=== PATIENT | female | born 1965 | race Caucasian/White ===

== ENCOUNTER → 2018-10-27 14:37 | Outpatient (CLI) | payer OTHER, SELFPAY ==
[2014-10-24 18:42] VITALS: BMI 26.4
[2018-11-05 16:01] LABS: HPV APTIMA, High Risk Positive (Negative); HPV Reflexed? YES, CHARGE PATIENT
== END ==
PROVIDERS: Visit Provider Obstetrics & Gynecology
DX: Z12.4 Encounter for screening for malignant neoplasm of cervix (principal)
CPT/HCPCS: 87624; 88175; G0145

== ENCOUNTER → 2018-12-13 17:15 | Outpatient (CLI) | payer OTHER, SELFPAY ==
--- NOTE | 2018-12-13 | IMM_PTH ---
PATIENT: ELEANOR PANTOJA LOC: [facility] U#:[id number] AGE/SX: 59/F ROOM: RE12/13/[address]: Dr. Alexis Corea MD : 1965 BED: DIS: SPEC #: [id number] RECD: 12/15/18 12:49 STATUS: BLAS RECarolina #: [id number] FELIPE: 12/13/18 00:[address]: Alexis Corea DEPT: IMMUNOHISTOCHEMISTRY RECD BY: Chelsey Clifton ENTERED: 12/15/18 12:50 SP TYPE: IMMUNO OTHR DR: No Primary Care Phys Tissues: A - Uterine cervix, NOS B - Endocervical Procedures: p16 (initial) KI-67 (add) PHYSICIAN & INSTITUTION [place] [id number] SPECIMEN INFORMATION: Tissue Source: A - Cervix, four-quad biopsy, B - ECC Clinical Info: R87.612 Specimen Number: [id number] A & B CPT code: 43875 x2, 01449 x2 METHODOLOGY: Deparaffinized sections of prefer/formalin-fixed tissue or PAP/DQ stained slides are incubated with monoclonal/polyclonal antibodies/oligonucleotide probes. Localization is made via biotin free immunoperoxidase method. Appropriate controls are performed and reacted as expected. Results on target cell population are indicated in the following table: RESULTS: ANTIBODY / CLONE RESULT Block A P16 (E6H4) negative Ki-67 (30-9) negative Block B P16 (E6H4) negative Ki-67 (30-9) negative These tests were developed and their performance characteristics determined by [facility]. They may not have been cleared or approved by the U.S. Food and Drug Administration. The FDA has determined that such clearance or approval is not necessary. INTERPRETATION: A. Cervix, four-quad biopsy: Suspicious for focal HPV change. B. ECC: Suspicious for focal HPV change. AM:sharif 12/15/18
--- NOTE | 2018-12-13 17:15 | CER_PTH ---
PATIENT: ELEANOR PANTOJA [facility][id number] AGE/SX: 59/F ROOM: RE12/13/[address]: Dr. Alexis Corea MD : 1965 BED: DIS: SPEC #: [id number] RECD: 12/13/18 17:32 STATUS: BLAS VIOLETA #: [id number] FELIPE: 12/13/18 17:[address]: Alexis Corea DEPT: SURGICAL PATHOLOGY RECD BY: Omari French ENTERED: 12/14/18 11:30 SP TYPE: CERV OT DR: No Primary Care Phys Tissues: A - Uterine cervix, NOS B - Endocervical Procedures: Surgery Specimen Level IV HEADER OPERATION: Colposcopy PRE-OP DIAGNOSIS: R87.612 TISSUE SUBMITTED: A - Four-quad biopsy, B - [facility] MICROSCOPIC DIAGNOSIS A. 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 See comment. B. Endocervix, curettings: Strips of benign superficial endocervix. Detached fragments of squamous mucosa suspicious for HPV change. See comment. AM:sharif 12/15/18 COMMENT A & B. Results from immunohistochemistry ([id number]) for surrogate HPV marker (p16) will be reported separately. Case has been reviewed in consultation with Dr. Alvarez who concurs with the above diagnosis. IDC:SERGIO MICROSCOPIC DESCRIPTION Slides are reviewed. GROSS DESCRIPTION A - Received in fixative is one container labeled with the patient's name and designated four-quad biopsy. The specimen consists of multiple irregular fragments of light judd soft tissue that in aggregate measure 0.3 x 0.2 x 0.1 cm. The specimen is totally submitted in one cassette. B - Received in fixative is one container labeled with the patient's name and designated ECC. The specimen consists of light judd mucoid material aggregating to 1 x 1 x <0.1 cm. The specimen is totally submitted in one cassette. / SERGIO:sharif 12/14/18 TC:5 CPT: 28408 x2
== END ==
PROVIDERS: Referring Provider Obstetrics & Gynecology; Visit Provider Obstetrics & Gynecology
DX: R87.612 Low grade squamous intraepithelial lesion on cytologic smear of cervix (LGSIL) (principal)
CPT/HCPCS: 88305; 88341; 88342

== ENCOUNTER 2019-05-11 06:44 | Day surgery (SDC) | payer OTHER, SELFPAY ==
[2019-04-15 09:18] VITALS: BMI 26.4
--- NOTE | 2019-04-15 09:33 | HP_ITS ---
Intake Vital Signs 04/15/19 Height 5 ft 5 in 04/15/19 Weight: 169 lb 04/15/19 BMI 28.1 04/15/19 BP 144/95 H 04/15/19 Blood Pressure Location Rt brachial 04/15/19 Position Sitting Intake Visit Reasons: STOMACH PAIN/COLONOSCOPY [facility] [place] Worker Required: No Is patient in pain?: No Allergies clindamycin Allergy (Mild, Verified 04/15/19 09:17) Vomiting Medications omega-3 fatty acids 1,000 mg capsule 1,000 mg PO DAILY 04/15/19 [History Confirmed 04/15/19] PFSH Surgical History S/P section (Acute) Social History (Updated 04/15/19 @ 09:33 by Tyesha Seals MD) Smoking Status: Unknown if ever smoked alcohol intake: current alcohol intake frequency: a few times a month HPI HPI HPI: ELEANOR WELLS, is a 53 F who presents to the office today for HPI HPI Surgical H&P: Yes HPI: ELEANOR WELLS, is a 53 F who presents to the office today for intermittent lower abdominal pain bilaterally occasional diarrhea occasional nausea. Patient states she has had these symptoms off and on for years however last week it was the worst and the first day she had 10/10 pain along with some sweating with the pain in her lower abdomen however by the next day the pain moved up and was improved described it can have as a pressure. Patient was able to eat the morning before the pain started as well as the following day. Patient states she has bowel movements daily usually soft denies any blood may occasionally have diarrhea with the pain episodes otherwise denies. Patient did have some occasional nausea with the episode of pain for a couple days but denies anything chronic. Patient states that with pastries or sweets she can get a little bit of nausea as well. Patient denies any family history of colon cancer. Patient also denies any previous history of colonoscopy. Patient's son did have perforated diverticulitis and had short-term colostomy and then that was reversed. Exam Const General: cooperative, no acute distress Cardio Rate: regular rate GI Inspection: non-distended Palpation: soft, no guarding, no hernias, nontender Neuro Cranial Nerves: CN's II-XI intact bilaterally Psych Affect: normal affect Assessment & Plan Problems 1. Intermittent lower abdominal pain R10.30 Plan I have discussed the above with the patient. I have offered the patient colonoscopy for evaluation. I have explained the risks/benefits of the procedure and described the procedure. I have discussed the risks with the patient, including but not limited to: infection, bleeding, perforation of the GI tract requiring emergency surgery, inability to complete the procedure, injury to any internal organs, complications of anesthesia, etc. - the patient understands and agrees to proceed. I have answered all the patient's questions to the patient's satisfaction and the patient has no further questions. The patient has been given instructions for the colon cleansing preparation. One day of clears, MiraLAX to collect split prep Tyesha Seals M.D. Pager: [phone] [facility] [address] [place] [address], [address] [place] [address] Office: [phone] Orders Orders: Colonoscopy Today Plan Detail Follow Up We will schedule colonoscopy Coding Level of Care Code Off vis,new,level 3 Diagnoses Intermittent lower abdominal pain R10.30 Date _ Tyesha Seals MD I have examined the patient the following changes are noted: Patient states that after she saw me her lower abdominal pain did come and go to the upper abdomen had some burning however states she has had no pain for the last 6 days. Previous to that patient did take 3 days of her 's omeprazole pills. Patient otherwise denies any reflux symptoms only every great while
[2019-05-11] VITALS (7 sets, daily range): BP systolic 106–147; BP diastolic 70–80; PULSE 70–80; RESP 16; TEMP 36.3–36.7; O2SAT 98–100; BMI 27.5
--- NOTE | 2019-05-11 08:30 | OP.CCLET_ITS ---
05/11/2019 Bridgette Velez Md Re : Colonoscopy procedure for Neli Castellon Dear Agustin This procedure was performed on Saturday, May 11, 2019. My impressions and recommendations are as follows: Impressions : - Diverticulosis in the sigmoid colon and at the hepatic flexure. - The entire examined colon is normal on direct and retroflexion views. - No specimens collected. Recommendations : - Discharge patient to home. - High fiber diet. - Continue present medications. - Repeat colonoscopy in 10 years for screening purposes. My findings are described in the full procedure note, which is enclosed. If I can be of further assistance, please feel free to contact me at Doctor phone number(s): , Work: . Sincerely, MD Tyesha Hall MD 05/11/2019 8:30:20 AM This report has been signed electronically.
--- NOTE | 2019-05-11 08:30 | OP.COLON_ITS ---
Patient Name: Neli Castellon Procedure Date: 05/11/2019 7:56 AM Date of : 1965 Age: 53 Procedure: Colonoscopy Indications: Lower abdominal pain Providers: Tyesha Seals MD Referring MD: Bridgette Velez Md Medicines: Monitored Anesthesia Care Patient Profile: This is a 53 year old female. Last Colonoscopy: none. The patient's first colonoscopy is today. Complications: No immediate complications. Procedure: Pre-Anesthesia Assessment: - Prior to the procedure, a History and Physical was performed, and patient medications and allergies were reviewed. The patient's tolerance of previous anesthesia was also reviewed. The risks and benefits of the procedure and the sedation options and risks were discussed with the patient. All questions were answered, and informed consent was obtained. Prior Anticoagulants: The patient has taken no previous anticoagulant or antiplatelet agents. ASA Grade Assessment: II - A patient with mild systemic disease. After reviewing the risks and benefits, the patient was deemed in satisfactory condition to undergo the procedure. After I obtained informed consent, the scope was passed under direct vision. Throughout the procedure, the patient's blood pressure, pulse, and oxygen saturations were monitored continuously. The Colonoscope was introduced through the anus and advanced to the cecum, identified by the appendiceal orifice, ileocecal valve and palpation. The colonoscopy was performed without difficulty. The patient tolerated the procedure well. The quality of the bowel preparation was good. Scope In: 8:04:16 AM Scope Withdrawal Time 0 hours 12 minutes 37 seconds Scope Out: 8:24:04 AM Total Procedure Duration Time 0 hours 19 minutes 48 seconds Findings: The perianal and digital rectal examinations were normal. Multiple medium-mouthed diverticula were found in the sigmoid colon and hepatic flexure. The entire examined colon appeared normal on direct and retroflexion views. Impression: - Diverticulosis in the sigmoid colon and at the hepatic flexure. - The entire examined colon is normal on direct and retroflexion views. - No specimens collected. Recommendation: - Discharge patient to home. - High fiber diet. - Continue present medications. - Repeat colonoscopy in 10 years for screening purposes. Procedure Code(s): --- Professional --- 65993, Colonoscopy, flexible; diagnostic, including collection of specimen(s) by brushing or washing, when performed (separate procedure) Diagnosis Code(s): --- Professional --- R10.30, Lower abdominal pain, unspecified K57.30, Diverticulosis of large intestine without perforation or abscess without bleeding CPT copyright 2017 [employer]. All rights reserved. The codes documented in this report are preliminary and upon compensation administrator review may be revised to meet current compliance requirements. MD Tyesha Hall MD 05/11/2019 8:30:20 AM This report has been signed electronically. Number of Addenda: 0 Note Initiated On: 05/11/2019 7:56 AM
== END 2019-05-11 09:19 | disposition home or self-care (01) ==
LOC: EN 06:45 → AC 06:46
PROVIDERS: Visit Provider Surgery
PROC: 0DJD8ZZ Inspection of Lower Intestinal Tract, Via Natural or Artificial Opening Endoscopic (ICD-10-PCS; CPT 45378; principal; 2019-05-11 07:55)
DX: K57.30 Diverticulosis of large intestine without perforation or abscess without bleeding (principal); R10.31 Right lower quadrant pain; R10.32 Left lower quadrant pain
CPT/HCPCS: 45378; J7120; J2405

== ENCOUNTER → 2024-08-13 | Outpatient (CLI) | payer OTHER, SELFPAY ==
--- NOTE | 2024-08-13 08:00 | MRI_ITS ---
PROCEDURE: SPINE LUMBAR (ROUTINE) 08/13/2024 REASON FOR EXAM: RADICULOPATHY TECHNIQUE: T1, T2, stir, multiplanar and multisequence images were obtained without IV contrast administration. COMPARISON: None FINDINGS: There is grade 1 retrolisthesis at L2-3, 0.3 cm. There is grade 1 spondylolisthesis at L3-4, 0.25 cm. There is grade 1 spondylolisthesis at L4-5, 0.4 cm. The vertebral body height is maintained. There is Modic edema type endplate change at T10-11, L2-3, L3-4, and L4-5. A 1.3 cm hemangioma is noted at S1. Intervertebral disc signal shows desiccation from L2-5. Normal appearing facets are noted. The L1-L2 level: There is mild central, moderate right and mild left paracentral disc protrusion with increased signal in the right margin of the disc consistent with a fissure. There is mild right lateral recess effacement. There is no significant foraminal narrowing or central canal stenosis. The L2-L3 level: There is moderate central and right and left paracentral disc and osteophyte protrusion. There is moderate bilateral lateral recess stenosis. There is mild right and moderate left foraminal narrowing secondary to disc and osteophyte protrusion. There is no central canal stenosis. The L3-L4 level: There is moderate central and right and left paracentral disc and osteophyte protrusion. There is moderate bilateral lateral recess stenosis. There is mild right and moderate left foraminal narrowing secondary to disc protrusion and facet hypertrophy. There is mild central canal stenosis. The L4-L5 level: There is broad-based central and right and left paracentral disc and osteophyte protrusion. There is moderate bilateral lateral recess stenosis. There is moderate bilateral foraminal narrowing secondary to disc protrusion and facet hypertrophy. There is moderate central canal stenosis, partly secondary to ligamentous hypertrophy. Trace bilateral facet effusions are noted. The L5-S1 level: There is mild central and right and left paracentral disc protrusion. There is no significant lateral recess or foraminal narrowing. There is mild central canal stenosis. Small bilateral facet effusions are present. The visualized conus shows normal signal characteristics. Adjacent soft tissues are unremarkable. MRI/Spine Lumbar (Routine) IMPRESSION: There is Modic edema type endplate change at T10-11, L2-3, L3-4, and L4-5, whic h can indicate recent injury or active inflammation.. There is grade 1 retrolisthesis at L2-3, 0.3 cm. There is grade 1 spondylolist hesis at L3-4, 0.25 cm. There is grade 1 spondylolisthesis at L4-5, 0.4 cm. There is mild central canal stenosis at L3-4, moderate central canal stenosis a t L4-5, and mild central canal stenosis at L5-S1, with lateral recess and foraminal narrowing. Reading Location: [facility]
== END | disposition home or self-care (01) ==
LOC: OPMRI 07:16
PROVIDERS: PCP Family Medicine; Referring Provider Family Medicine; Visit Provider Family Medicine
DX: M54.16 Radiculopathy, lumbar region (principal)
CPT/HCPCS: 72148